=== PATIENT | female | born 1980 | race African-American/Black ===

== ENCOUNTER 2017-05-24 16:02 | Emergency (ER) | payer SELFPAY ==
[2017-05-24] MEDS ORDERED: predniSONE 20 MG TAB ONE (17:19)
== END 2017-05-24 17:40 | disposition home or self-care (01) ==
LOC: ERS 16:02
DX: L50.9 Urticaria, unspecified (principal)
CPT/HCPCS: 99282; J7506

== ENCOUNTER 2017-07-07 19:02 | Emergency (ER) | payer SELFPAY | END 2017-07-07 21:24 | disposition left against medical advice (07) | LOC: ERS 19:02 | DX: Z53.21 Procedure and treatment not carried out due to patient leaving prior to being seen by health care provider (principal) ==

== ENCOUNTER 2017-07-08 10:54 | Emergency (ER) | payer SELFPAY ==
[2017-07-08] MEDS ORDERED: predniSONE 20 MG TAB ONE (11:19)
== END 2017-07-08 11:33 | disposition home or self-care (01) ==
LOC: ERS 10:54
DX: T78.1XXA Other adverse food reactions, not elsewhere classified, initial encounter (principal)
CPT/HCPCS: 99284; J7506

== ENCOUNTER 2017-09-06 18:53 | Emergency (ER) | payer SELFPAY ==
[2017-09-06 19:43] LABS: Bilirubin Negative (Negative); Blood, Urine Negative (Negative); Clarity CLOUDY (Clear); Glucose, Urine (Dipstick) Negative (Negative); Leukocyte Moderate (Negative); Nitrite Negative (Negative); Pregnancy Test - Urine (BHCG) Negative (Negative); Protein, Urine (Dipstick) Negative (Neg-Trace); Specific Gravity, Urine 1.018 (1.002-1.036); pH, Urine 7.5 (5.0-9.0)
[2017-09-06 19:44] LABS: Pregu Control Background? CLEAR/WHITE (CLR/WHITE); Pregu Control Bar Appear? YES (CONTROL BAR); Specific Gravity 1.018 (1.002-1.036)
[2017-09-06 19:45] LABS: Bacteria/HPF Rare-Few HPF (None Seen); Hyaline Casts/LPF 0-3 HYALINE CAST LPF (0-3 Hyaline); Pathc Cast-AUWi Flag 0.13 (0-2.49)
[2017-09-06] MEDS ORDERED: Ketorolac Tromethamine 60 MG/2 ML VIAL ONE (20:46)
[2017-09-06] MEDS ORDERED: Azithromycin 250 MG TAB ONE (21:15)
[2017-09-06] MEDS ORDERED: metroNIDAZOLE 250 MG TAB ONE (21:16)
[2017-09-06] MEDS ORDERED: cefTRIAXone\\ROCEPHIN 250 MG VIAL ONE (21:16)
[2017-09-06] MEDS ORDERED: Lidocaine 1% PF 5 ML VIAL ONE (21:16)
[2017-09-06] MEDS ORDERED: Ondansetron ODT 4 MG TAB ONE (21:40)
[2017-09-08 22:53] LABS: Chlamydia by PCR Not Detected (NotDetected); GC by PCR Not Detected (NotDetected)
== END 2017-09-06 21:47 | disposition home or self-care (01) ==
LOC: ERS 18:53
DX: N89.8 Other specified noninflammatory disorders of vagina (principal)
CPT/HCPCS: 81003; 81015; 81025; 87480; 87491; 87510; 87591; 87660; 96372; J0696; J1885; J2001; Q0162

== ENCOUNTER 2017-10-13 16:17 | Emergency (ER) | payer SELFPAY ==
[2017-10-13] MEDS ORDERED: predniSONE 20 MG TAB ONE (18:28)
== END 2017-10-13 18:55 | disposition home or self-care (01) ==
LOC: ERS 16:17
DX: L25.9 Unspecified contact dermatitis, unspecified cause (principal)
CPT/HCPCS: 99283; J7506

== ENCOUNTER 2017-11-06 19:07 | Emergency (ER) | payer SELFPAY | END 2017-11-06 21:54 | disposition home or self-care (01) | LOC: ERS 19:07 | DX: L50.9 Urticaria, unspecified (principal) | CPT/HCPCS: 99282 ==

== ENCOUNTER 2017-11-18 08:47 | Emergency (ER) | payer SELFPAY ==
[2017-11-18] MEDS ORDERED: Ibuprofen 200 MG TAB ONE (09:26)
--- NOTE | 2017-11-18 11:01 | ULT ---
LEFT LOWER EXTREMITY ULTRASOUND WITH DOPPLER: HISTORY: Intermittent sharp pain. COMPARISON: None. TECHNIQUE: Cameron scale, color flow, Doppler imaging with spectral waveform analysis was performed from the left l ower extremity venous system. FINDINGS: There is compressibility, presence of flow, and augmentation in the common femoral vein, femoral vein , and popliteal vein. Here is flow in the greater saphenous vein, profunda vein, and posterior tibia l vein. There is flow in the peroneal vein. There is soft tissue edema. IMPRESSION: No evidence of thrombus in the left lower extremity deep venous system. POS: [facility]
== END 2017-11-18 11:20 | disposition home or self-care (01) ==
LOC: ERS 08:47
DX: M79.605 Pain in left leg (principal); J30.2 Other seasonal allergic rhinitis

== ENCOUNTER 2018-01-02 07:45 | Emergency (ER) | payer SELFPAY ==
[2018-01-02] MEDS ORDERED: methylPREDNISolone Sod Succ/PF 125 MG/2 ML VIAL ONE (09:46)
[2018-01-02] MEDS ORDERED: diphenhydrAMINE 50 MG/ML VIAL ONE (09:46)
[2018-01-02] MEDS ORDERED: Famotidine/PF 20 mg/2ml Vial SLOW IVP SCH (10:00)
== END 2018-01-02 11:18 | disposition home or self-care (01) ==
LOC: ERS 07:45
DX: T78.1XXA Other adverse food reactions, not elsewhere classified, initial encounter (principal); R22.0 Localized swelling, mass and lump, head; Z79.899 Other long term (current) drug therapy
CPT/HCPCS: 96374; 96375; J1200; J2930; S0028

== ENCOUNTER 2018-01-31 09:46 | Emergency (ER) | payer SELFPAY ==
[2018-01-31] MEDS ORDERED: predniSONE 20 MG TAB ONE (11:21)
== END 2018-01-31 11:51 | disposition home or self-care (01) ==
LOC: ERS 09:46
DX: T78.3XXA Angioneurotic edema, initial encounter (principal); Z79.899 Other long term (current) drug therapy
CPT/HCPCS: 99283; J7506

== ENCOUNTER 2018-07-20 03:23 | Emergency (ER) | payer SELFPAY ==
[2018-07-20 04:21] LABS: Bilirubin Negative (Negative); Blood, Urine Large (Negative); Glucose, Urine (Dipstick) Negative (Negative); Leukocyte Trace (Negative); Nitrite Negative (Negative); Protein, Urine (Dipstick) > or equal to 300 mg/dL (Neg-Trace); Urobilinogen 0.2 mg/dL (0.2-1.0)
[2018-07-20 04:23] LABS: Clarity Turbid (Clear); RBC/HPF GREATER THAN 50-TNTC HPF (0-3); Squamous Epithelial 0-3 HPF (0-3)
[2018-07-20 04:24] LABS: Bacteria/HPF Rare-Few HPF (None Seen)
[2018-07-20 04:28] LABS: #Basophils 0.1 thou/uL (0.0-0.2); #Eosinphils 0.4 thou/uL (0.0-0.7); #Lymphocytes 2.8 thou/uL (1.20-3.40); #Monocytes 0.9 thou/uL (0.11-0.59); #Neutrophils 5.6 thou/uL (1.40-6.50); %Eosinophils 3.9 % (0.0-10.0); %Lymphocytes 28.7 % (21.0-51.0); %Monocytes 9.3 % (0.0-10.0); %Neutrophils 57.1 % (42.0-75.0); Hemoglobin 13.5 g/dL (12.0-16.0); Mean Corpuscular HGB CONC 32.8 g/dL (32.0-36.0); Mean Corpuscular Hemoglobin 30.3 pg (27.0-31.0); Mean Corpuscular Volume 92.5 fL (78.0-98.0); Mean Platelet Volume 9.9 fL (7.4-10.4); Platelet Count 231 thou/uL (130-400); RBC Distribution Width 12.1 % (11.5-14.5); Red Blood Cell (RBC) Count 4.44 mill/uL (4.20-5.40); White Blood Cell (WBC) Count 9.8 thou/uL (4.8-10.8)
[2018-07-20 04:57] LABS: ALT (SGPT) 8 U/L (8-55); AST (SGOT) 12 U/L (5-34); Albumin 4.3 g/dL (3.5-5.0); Alkaline Phosphatase 109 U/L (40-150); Anion Gap 12 mmol/L (10-20); BUN (Urea Nitrogen) 12 mg/dL (7.0-18.7); Bilirubin, Total 0.6 mg/dL (0.2-1.2); Calc. Creatinine Clearance 0 mL/min (70-130); Calcium 9.3 mg/dL (7.8-10.44); Carbon Dioxide 21 mmol/L (22-29); Chloride 109 mmol/L (98-107); Estimated GFR-MDRD 87; Globulin 3.8 g/dL (2.4-3.5); Glucose 109 mg/dL (70-105); Potassium 3.7 mmol/L (3.5-5.1); Protein, Total 8.1 g/dL (6.0-8.3); Sodium 138 mmol/L (136-145)
== END 2018-07-20 04:42 | disposition home or self-care (01) ==
LOC: ERS 03:23
DX: N30.91 Cystitis, unspecified with hematuria (principal); Z79.899 Other long term (current) drug therapy
CPT/HCPCS: 80053; 81003; 81015; 85025; 99283

== ENCOUNTER 2018-09-08 19:37 | Emergency (ER) | payer SELFPAY | END 2018-09-08 21:50 | disposition home or self-care (01) | LOC: ERS 19:37 | DX: M17.12 Unilateral primary osteoarthritis, left knee (principal) | CPT/HCPCS: 99283 ==

== ENCOUNTER 2018-10-05 19:52 | Emergency (ER) | payer SELFPAY | END 2018-10-05 20:53 | disposition home or self-care (01) | LOC: ERS 19:52 | DX: M25.562 Pain in left knee (principal) | CPT/HCPCS: 99281 ==

== ENCOUNTER 2018-11-01 21:06 | Emergency (ER) | payer SELFPAY | END 2018-11-01 21:58 | disposition home or self-care (01) | LOC: ERS 21:06 | DX: M25.562 Pain in left knee (principal) | CPT/HCPCS: 99281 ==

== ENCOUNTER 2019-01-13 12:10 | Emergency (ER) | payer SELFPAY ==
[2019-01-13] MEDS ORDERED: Ondansetron ODT 8 MG TAB ONE (12:34)
[2019-01-13] MEDS ORDERED: Phenazopyridine HCl 97.5 MG TABLET ONE (12:34)
[2019-01-13 12:45] LABS: Bilirubin Moderate (Negative); Blood, Urine Large (Negative); Glucose, Urine (Dipstick) Negative (Negative); Leukocyte Large (Negative); Nitrite Positive (Negative); Protein, Urine (Dipstick) 100 mg/dL (Neg-Trace); Specific Gravity, Urine 1.027 (1.002-1.036); pH, Urine 6.5 (5.0-9.0)
[2019-01-13 12:46] LABS: Bacteria/HPF 4+ HPF (None Seen)
[2019-01-13 12:49] LABS: Pathc Cast-AUWi Flag 11.53 (0-2.49); Yeast-AUWi Flag 95.6 (0-25.0)
[2019-01-13 12:50] LABS: Pregnancy Test - Urine (BHCG) Negative (Negative); Pregu Control Background? CLEAR/WHITE (CLR/WHITE); Pregu Control Bar Appear? YES (CONTROL BAR); Specific Gravity 1.027 (1.002-1.036)
[2019-01-13 13:04] LABS: RBC/HPF 21-50 HPF (0-3); Yeast-All Forms None Seen HPF (None Seen)
[2019-01-13 13:05] LABS: Clarity Cloudy (Clear); Hyaline Casts/LPF 0-3 HYALINE CAST LPF (0-3 Hyaline)
== END 2019-01-13 13:59 | disposition home or self-care (01) ==
LOC: ERS 12:10
DX: N39.0 Urinary tract infection, site not specified (principal)
CPT/HCPCS: 81003; 81015; 81025; 87077; 87086; 87186; 99283

== ENCOUNTER 2019-03-03 15:01 | Emergency (ER) | payer SELFPAY | END 2019-03-03 15:47 | disposition home or self-care (01) | LOC: ERS 15:01 | DX: M25.562 Pain in left knee (principal) | CPT/HCPCS: 99281 ==

== ENCOUNTER 2020-06-26 13:13 | Emergency (ER) | payer SELFPAY ==
[2020-06-26] MEDS ORDERED: Ibuprofen 200 MG TAB ONE (13:55)
[2020-06-26] MEDS ORDERED: Dexamethasone 4 mg/ml Vial ONE (13:55)
[2020-06-26] MEDS ORDERED: Acetaminophen 500 MG TAB ONE (13:55)
[2020-06-26] MEDS ORDERED: Bicillin LA 1.2 MILLION UNITS/2 ML SYRINGE ONE (13:57)
== END 2020-06-26 14:25 | disposition home or self-care (01) ==
LOC: ERS 13:13
DX: J02.0 Streptococcal pharyngitis (principal)
CPT/HCPCS: 87081; 87430; 96372; 99283; J0561; J1100

== ENCOUNTER 2020-10-01 08:48 | Emergency (ER) | payer SELFPAY ==
[2020-10-01] MEDS ORDERED: Ketorolac Tromethamine 30 MG/ML VIAL ONE (09:34)
--- NOTE | 2020-10-01 09:35 | RAD ---
XR Cerv Sp Ap Lat STANDARD History: Cervical radiculopathy Comparison: None. Findings: No acute fracture or malalignment. Mild disc space height loss at C4-C7 with small disc ost eophyte complexes. Facet joints are intact. No significant listhesis. Open-mouth odontoid view is normal. Mandible is intact. Impression: Mild mid cervical spondylosis.
== END 2020-10-01 10:16 | disposition home or self-care (01) ==
LOC: ERS 08:48
DX: M54.12 Radiculopathy, cervical region (principal)
CPT/HCPCS: 72040; 96372; J1885

== ENCOUNTER 2022-12-11 15:33 | Emergency (ER) | payer SELFPAY ==
[2022-12-11] MEDS ORDERED: Ketorolac Tromethamine 30 MG/ML VIAL ONE (16:56)
[2022-12-11] MEDS ORDERED: HYDROcodone/Acetaminophen 5/325 mg Tablet ONE (16:56)
== END 2022-12-11 17:47 | disposition home or self-care (01) ==
LOC: ERS 15:33
DX: M25.561 Pain in right knee (principal)
CPT/HCPCS: 96372; J1885

== ENCOUNTER 2023-03-03 22:04 | Emergency (ER) | payer SELFPAY ==
[2023-03-03] MEDS ORDERED: diphenhydrAMINE 25 MG CAP ONE (22:39)
[2023-03-03] MEDS ORDERED: predniSONE 20 MG TAB ONE (22:39)
== END 2023-03-03 22:43 | disposition home or self-care (01) ==
LOC: ERS 22:04
DX: L50.9 Urticaria, unspecified (principal); R23.3 Spontaneous ecchymoses
CPT/HCPCS: 99282; J7512

== ENCOUNTER 2023-03-22 02:29 | Emergency (ER) | payer OTHER, SELFPAY ==
[2023-03-22] MEDS ORDERED: methylPREDNISolone Sod Succ/PF 125 MG/2 ML VIAL ONE (04:18)
[2023-03-22] MEDS ORDERED: Famotidine 20 MG TAB ONE (04:18)
== END 2023-03-22 04:53 | disposition home or self-care (01) ==
LOC: ERS 02:29
DX: L50.9 Urticaria, unspecified (principal)
CPT/HCPCS: 96372; 99282; J2930

== ENCOUNTER 2023-06-08 00:23 | Emergency (ER) | payer OTHER ==
[2023-06-08] MEDS ORDERED: Famotidine 20 MG TAB ONE (01:19)
[2023-06-08] MEDS ORDERED: predniSONE 20 MG TAB ONE (01:20)
== END 2023-06-08 02:57 | disposition home or self-care (01) ==
LOC: ERS 00:23
DX: L50.9 Urticaria, unspecified (principal)
CPT/HCPCS: 99283; J7512

== ENCOUNTER 2023-07-25 13:29 | Emergency (ER) | payer OTHER ==
[2023-07-25] MEDS ORDERED: Dexamethasone 10 MG/ML VIAL ONE (14:25)
== END 2023-07-25 14:54 | disposition home or self-care (01) ==
LOC: ERS 13:29
DX: L50.0 Allergic urticaria (principal)
CPT/HCPCS: 96372; 99282; J1100

== ENCOUNTER 2023-07-28 01:58 | Emergency (ER) | payer OTHER ==
[2023-07-28] MEDS ORDERED: predniSONE 20 MG TAB ONE (02:21)
[2023-07-28 02:40] LABS: Bacteria/HPF None Seen HPF (None Seen); Bilirubin Negative (Negative); Blood, Urine Negative (Negative); CAUTI Indications for Culture Dysuria,urgency,freq; Clarity Clear (Clear); Glucose, Urine (Dipstick) Normal (Negative); Ketone, Urine Negative (Negative); Leukocyte 75 Leu/uL (Negative); Nitrite Negative (Negative); Protein, Urine (Dipstick) 20 mg/dL (Neg-Trace); RBC/HPF 0-3 HPF (0-3); Specific Gravity, Urine 1.032 (1.002-1.036); pH, Urine 6.5 (5.0-9.0)
[2023-07-28 02:43] LABS: Urine Culture Reflex No No
== END 2023-07-28 03:20 | disposition short-term general hospital (02) ==
LOC: ERS 01:58
DX: L50.9 Urticaria, unspecified (principal); G62.9 Polyneuropathy, unspecified; Z79.899 Other long term (current) drug therapy
CPT/HCPCS: 81001; 99283; J7512

== ENCOUNTER 2023-08-30 16:43 | Emergency (ER) | payer OTHER ==
[2023-08-30] MEDS ORDERED: Dexamethasone 10 MG/ML VIAL ONE (17:09)
== END 2023-08-30 17:34 | disposition home or self-care (01) ==
LOC: ERS 16:43
DX: L50.0 Allergic urticaria (principal)
CPT/HCPCS: 96372; 99282; J1100

== ENCOUNTER 2023-09-21 18:35 | Emergency (ER) | payer OTHER ==
[2023-09-21] MEDS ORDERED: methylPREDNISolone Sod Succ/PF 125 MG/2 ML VIAL ONE (20:17)
== END 2023-09-21 20:40 | disposition home or self-care (01) ==
LOC: ERS 18:35
DX: L50.9 Urticaria, unspecified (principal); M87.00 Idiopathic aseptic necrosis of unspecified bone; G62.9 Polyneuropathy, unspecified; Z75.3 Unavailability and inaccessibility of health-care facilities
CPT/HCPCS: 96374; J2930

== ENCOUNTER 2023-10-03 01:34 | Emergency (ER) | payer OTHER ==
[2023-10-03] MEDS ORDERED: predniSONE 20 MG TAB ONE (03:12)
[2023-10-03] MEDS ORDERED: Famotidine 20 MG TAB ONE (03:12)
[2023-10-03] MEDS ORDERED: diphenhydrAMINE 25 MG CAP ONE (03:12)
== END 2023-10-03 04:18 | disposition home or self-care (01) ==
LOC: ERS 01:34
DX: L50.9 Urticaria, unspecified (principal)
CPT/HCPCS: 99282; J7512

== ENCOUNTER 2024-01-30 19:48 | Emergency (ER) | payer OTHER ==
[2024-01-30] MEDS ORDERED: predniSONE 20 MG TAB ONE (20:17)
== END 2024-01-30 20:26 | disposition home or self-care (01) ==
LOC: ERS 19:48
DX: L50.9 Urticaria, unspecified (principal)
CPT/HCPCS: 99282; J7512